=== PATIENT | female | born 1960 | race Caucasian/White ===

== ENCOUNTER 2017-04-13 22:36 | Emergency (ER) | payer SELFPAY ==
[~2017-04-13] VITALS: Ht 167.6 cm; Wt 72.0 kg
[2017-04-14] MEDS ORDERED: ONDANSETRON HCL 4MG/2ML VIAL IV STA (00:26)
[2017-04-14] MEDS ORDERED: SODIUM CHLORIDE 0.9% 1,000 ML IV ONE (00:26)
[2017-04-14] MEDS ORDERED: PROCHLORPERAZINE MALEATE 10MG TABLET PO ONE (00:30)
[2017-04-14 01:28] LABS: HEMATOCRIT. 42.2 % (36.0-48.0); HEMOGLOBIN. 13.6 g/dL (12.0-16.0); MEAN CORPUSCULAR HEMOGLOBIN 27.8 pg (28.0-32.0); MEAN CORPUSCULAR VOLUME 86.2 fL (81.0-99.0); MEAN PLATELET VOLUME 7.2 fl (7.4-10.4); PLATELET 320 x1000/uL (130-400); RED BLOOD CELL COUNT 4.89 mill/uL (4.2-5.4); RED CELL DISTRIBUTION WIDTH 14.2 % (11.6-14.6)
[2017-04-14 01:32] LABS: CHLORIDE 106 mEq/L (98-107)
[2017-04-14 01:41] LABS: PROTHROMBIN TIME 10.5 sec (9.4-11.6)
[2017-04-14] MEDS ORDERED: LIDOCAINE HCL/EPINEPHRINE 1%-EPI 1:100,000 30 ML VIAL INFIL ONE (02:00)
[2017-04-14 02:11] LABS: CLARITY URINE CLEAR (CLEAR); COLOR URINE YELLOW (YELLOW); KETONES URINE TRACE (NEGATIVE); LEUKOCYTE ESTERASE URINE 1+ (NEGATIVE); NITRITE URINE NEGATIVE (NEGATIVE); OCCULT BLOOD URINE NEGATIVE (NEGATIVE); PROTEIN URINE NEGATIVE (NEGATIVE); SPECIFIC GRAVITY URINE 1.029 (1.005-1.030); UROBILINOGEN URINE 0.2 E.U./dL (0.2-1.0)
[2017-04-14 02:47] LABS: PLATELET ESTIMATE NORMAL
[2017-04-14] MEDS ORDERED: LIDOCAINE HCL/EPINEPHRINE 1%-EPI 1:100,000 50 ML VIAL INFIL SCH (03:17)
[2017-04-14 07:04] VITALS: BP 127/69
== END 2017-04-14 07:05 | disposition home or self-care (01) ==
LOC: ER 23:09
DX: S05.32XA Ocular laceration without prolapse or loss of intraocular tissue, left eye, initial encounter (principal); R55 Syncope and collapse; R11.2 Nausea with vomiting, unspecified; R19.7 Diarrhea, unspecified; W22.8XXA Striking against or struck by other objects, initial encounter; Y93.89 Activity, other specified; Y92.89 Other specified places as the place of occurrence of the external cause; Y99.8 Other external cause status
CPT/HCPCS: 12011; 36415; 70450; 71045; 80053; 81003; 83690; 85025; 85610; 93005; 96361; 96374; 99285; J2405; J3490; J7030; Z7610; Q0164